=== PATIENT | male | born 1965 | race Caucasian/White ===

== ENCOUNTER 2019-03-24 21:44 | Emergency (ER) | payer MEDICAID ==
[~2019-03-24] VITALS: Ht 185.4 cm; Wt 97.7 kg
[2019-03-24] MEDS ORDERED: ONDA4 PO (22:51)
[2019-03-24] MEDS ORDERED: MORP15 PO (22:51)
[2019-03-24] MEDS ORDERED: TRAM50TA4 PO (22:51)
[2019-03-24] MEDS ORDERED: GABA-533 PO (22:51)
[2019-03-25] MEDS ORDERED: CloNIDine HCL 0.2 MG TABLET PO ONE ×2 (03:30)
[2019-03-25] MEDS ORDERED: IBUPROFEN 800 MG TABLET PO ONE (03:30)
[2019-03-25] MEDS ORDERED: ONDANSETRON HCL 4 MG TABLET PO ONE ×2 (03:30)
[2019-03-25] MEDS ORDERED: GABAPENTIN 400 MG CAPSULE PO ONE (03:45)
[2019-03-25 04:35] VITALS: BP 147/57
== END 2019-03-25 04:44 | disposition home or self-care (01) ==
LOC: EMS 21:47
DX: F11.23 Opioid dependence with withdrawal (principal); F15.90 Other stimulant use, unspecified, uncomplicated; Z88.0 Allergy status to penicillin; Z88.8 Allergy status to other drugs, medicaments and biological substances; Z79.899 Other long term (current) drug therapy; Y92.89 Other specified places as the place of occurrence of the external cause
CPT/HCPCS: 99284; Q0162